=== PATIENT | female | born 1960 | race Hispanic/Latino ===

== ENCOUNTER 2022-02-22 16:19 | Emergency (ER) | payer SELFPAY ==
[2022-02-22 16:22] VITALS: BP 167/88
[2022-02-22 18:00] LABS: BUN/Creatinine Ratio 26; Basophils % (Auto) 0.4 % (0.0-1.8); Blood Urea Nitrogen 21 mg/dL (7-17); Calcium 9.4 mg/dL (8.4-10.2); Eosinophils # (Auto) 0.1 K/mm3 (0.0-0.4); Eosinophils % (Auto) 0.8 % (0.0-4.3); Hematocrit 39.7 % (30.3-42.9); Hemoglobin 13.1 gm/dl (10.1-14.3); Hemolysis Index 1; Lymphocytes % (Auto) 24.2 % (13.4-35.0); Mean Corpuscular HGB Conc 33 % (30-34); Mean Corpuscular Volume 87 fl (79-97); Monocytes # (Auto) 0.5 K/mm3 (0.0-0.8); Monocytes % (Auto) 6.3 % (0.0-7.3); Platelet Count 240 K/mm3 (140-440); Red Blood Count 4.58 M/mm3 (3.65-5.03); Red Cell Distribution Width 13.3 % (13.2-15.2)
--- NOTE | 2022-02-24 13:17 | Electrocardiograph Report ---
[facility] Test Date: 2022-02-22 Test Time: 16:23:47 Pat Name: RAJEEV DIOP Department: Room: Gender: F Medical Data Entry Clerk: AF : 1960 Requested By: GIOVANNI CRUZ Order Number: [id number] Reading MD: Francois Fleming Measurements Intervals [place] Rate: 72 P: -2 [place]: 123 QRS: 60 QRSD: 71 T: 50 QT: 374 QTc: 408 Interpretive Statements Sinus rhythm No previous ECG available for comparison Electronically Signed On 02-24-2022 13:16:51 EDT by Francois Fleming
== END 2022-02-23 05:00 | disposition left against medical advice (07) ==
LOC: ED 16:19
DX: R07.89 Other chest pain (principal); Z53.21 Procedure and treatment not carried out due to patient leaving prior to being seen by health care provider
CPT/HCPCS: 36415; 80048; 83690; 84484; 85025; 93005